=== PATIENT | female | born 1965 | race Caucasian/White ===

== ENCOUNTER 2023-02-04 09:06 | Emergency (ER) | payer OTHER, SELFPAY ==
[2023-02-04 09:20] VITALS: BP 147/74; PULSE 80; RESP 16; TEMP 36.4; O2SAT 99
--- NOTE | 2023-02-04 09:37 | ED.EAR ---
HPI - Ear Problem General Chief complaint: Ear Stated complaint: lt ear clogged Time Seen by Provider: 02/04/23 09:39 Source: patient, RN notes reviewed and old records reviewed Mode of arrival: ambulatory Limitations: no limitations History of Present Illness HPI Narrative: 57 year old female who presents to [facility] care with complaints of left ear clogged with decreased hearing since yesterday. Patient reports history of ear wax accumulation in the past with similar symptoms. Patient would like to have ear irrigated to remove wax. Patient denies any complaints of acute pain to her ears or fevers. MD Complaint: decreased hearing (left ear) and other (left ear feels clogged) Location: left ear Discharge from ear: Reports no Related Data Home Medications Medication Instructions Recorded Confirmed No Home Medications 02/04/23 02/04/23 Allergies Allergy/AdvReac Type Severity Reaction Status Date / Time acetaminophen [From Vicodin] Allergy Hives Verified 02/04/23 09:31 hydrocodone [From Vicodin] Allergy Hives Verified 02/04/23 09:31 Sulfa (Sulfonamide Allergy Hives Verified 02/04/23 09:31 Antibiotics) Review of Systems Review of Systems: CONSTITUTIONAL: Denies malaise, chills, sweats, or fever. EYES: Denies visual changes, redness, or discharge. ENT: Reports no rhinorrhea, congestion, sinus pain, left otalgia with decreased hearing, no sore throat. CARDIOVASCULAR: Denies chest pain, palpitations, or edema. RESPIRATORY: Reports no cough.? Denies dyspnea. GASTROINTESTINAL: Denies abdominal pain, nausea, vomiting, diarrhea SKIN: Denies rash or itching. MUSCULOSKELETAL: Denies myalgia. NEUROLOGIC: Denies headache. All systems reviewed & are unremarkable except as noted in HPI and below PMFSH Social History Social History (Updated 02/05/23 @ 15:30 by Faith Aguero NP) Smoking status: Never smoker Alcohol intake: unknown Substance use type: does not use Gender identity (if verbalized by the patient): Female Comments At time of signature, agree with nursing past medical, surgical, social and family history. There is no relevant family history pertinent to the presenting complaint Exam Narrative: GENERAL: Well-appearing, well-nourished, and in no acute distress. HEAD: Normocephalic EYES: PERRLA, conjunctivae clear ENT: Nares clear, turbinates edematous and erythematous, clear discharge. Mucous membranes moist. left ear wax impaction noted, after cleansing bilateral TM pearly loyd with dull light reflex bilaterally; no tragal tenderness. Oropharynx erythematous without lesions. Tonsils not enlarged and without exudate, no drooling, no hoarseness, no trismus, uvula midline. NECK: Supple. No lymphadenopathy CHEST: Clear to auscultation, breath sounds equal. No wheezing, rhonchi, rales, or stridor. No respiratory distress, speaks in full sentences.SAO2 99% on room air HEART: Regular rate and rhythm. No murmur heard. SKIN: Warm, dry, no rash. NEURO: Alert and oriented x3. PSYCH: Normal mood and affect Course Course Emergency Course: Patient is aware of diagnosis, understands and agrees to treatment plan.? Anticipatory guidance given.? Patient agrees to follow-up as directed and is aware of reasons to seek care at the emergency department. Portions of this record may have been created with voice recognition software Level of Care: Express Care Visit Vital Signs Vital signs: Vital Signs Temperature 36.4 C L 02/04/23 09:20 Pulse Rate 80 02/04/23 09:20 Respiratory Rate 16 02/04/23 09:20 Blood Pressure 147/74 H 02/04/23 09:20 Pulse Oximetry 99 02/04/23 09:20 Temperature 36.4 C L 02/04/23 09:20 Pulse Rate 80 02/04/23 09:20 Respiratory Rate 16 02/04/23 09:20 Blood Pressure 147/74 H 02/04/23 09:20 Pulse Oximetry 99 02/04/23 09:20 Reviewed Procedures Ear Wax Removal Left Ear: Ear Wax Removal Date: 02/04/23
== END 2023-02-04 09:58 | disposition home or self-care (01) ==
PROVIDERS: Emergency Provider Registered Nurse; PCP Family Medicine
DX: H61.22 Impacted cerumen, left ear (principal)
CPT/HCPCS: 69209; 99212; G0463

== ENCOUNTER 2023-10-05 08:08 | Outpatient (CLI) | payer OTHER, SELFPAY ==
--- NOTE | ~2023-10-05 | MM_ITS ---
EXAMINATION: MM screening [place] BI w nancy HISTORY: Screening mammogram TECHNIQUE: Craniocaudal and mediolateral oblique 3-D tomosynthesis images were obtained and synthetic 2-D images were generated. CAD analysis was submitted and interpreted. COMPARISON: No prior mammogram is available for comparison at this institution. BREAST PARENCHYMAL COMPOSITION: The breasts are heterogeneously dense, which may obscure small masses . FINDINGS: There is no evidence of suspicious mass, calcification, or architectural distortion to sugg est malignancy in either breast. IMPRESSION: 1. No mammographic evidence of malignancy. 2. Recommend routine screening mammography in one year. BI-RADS Category 1: Negative Reviewed, dictated and finalized at location A. REGISTER OPERATOR
== END 2023-10-05 08:09 | disposition home or self-care (01) ==
PROVIDERS: PCP Family Medicine; Visit Provider Family Medicine
DX: Z12.31 Encounter for screening mammogram for malignant neoplasm of breast (principal)
CPT/HCPCS: 77063; 77067

== ENCOUNTER 2023-12-14 12:08 | Outpatient (CLI) | payer OTHER, SELFPAY ==
--- NOTE | ~2023-12-14 | XR_ITS ---
EXAMINATION: XR lumbar spine min 4V DATE: 12/14/2023 12:41 INDICATION: Low back pain TECHNIQUE: Anteroposterior, lateral, and bilateral oblique views of the lumbar spine, and cone-down l ateral view of the lumbosacral junction were obtained. COMPARISON: None. FINDINGS: There are 4 mm of anterolisthesis of L4 on L5. There is mild loss of intervertebral disc sp luz height at L4-5 and L5-S1. The vertebral body heights are maintained. There is no fracture. There is moderate facet joint osteoarthritis of the lower lumbar spine. IMPRESSION: 1. Mild lumbar spondylosis without acute findings. Reviewed, dictated and finalized at location B. BASED PAINT TECHNICIAN
--- NOTE | ~2023-12-14 | XR_ITS ---
AP view of the pelvis and AP and lateral views of the bilateral hips Clinical history: Pain Findings: No acute fracture or dislocation is seen. Osseous alignment is anatomic. Bilateral hip and SI joint spaces are preserved. Soft tissues are unremarkable. Impression: No significant abnormality is seen. Reviewed, dictated and finalized at [facility]. LANCE WEB DESIGNER Impression: No significant abnormality is seen.
--- NOTE | ~2023-12-14 | XR_ITS ---
EXAMINATION:XR cervical spine 4-5V DATE: 12/14/2023 12:41 INDICATION: Neck pain TECHNIQUE: AP, lateral, lateral swimmers and odontoid views of the cervical spine are provided. COMPARISON: None FINDINGS: There are 2 mm of anterolisthesis of C3 on C4 and 2 mm of retrolisthesis of C4 on C5 and C5 on C6 The odontoid process is intact. No fracture is identified. The vertebral body heights are main tained. There is severe loss of intervertebral disc space height at C4-5, C5-6, and C6-7. There is mu ltilevel severe uncovertebral joint osteoarthritis and mild to moderate facet joint osteoarthritis. P revertebral soft tissues are normal. IMPRESSION: 1. Severe cervical spondylosis without acute findings. Reviewed, dictated and finalized at location B. ING PLANNING INTERNS[employer]IP
--- NOTE | ~2023-12-14 | XR_ITS ---
Left Shoulder Technique: AP and scapular Y views were obtained. Clinical History: Pain Findings: No fracture or dislocation is seen. Osseous alignment is anatomic. The glenohumeral and acr omioclavicular joint spaces are preserved. Soft tissues are unremarkable. Impression: Unremarkable left shoulder radiographs. Reviewed, dictated and finalized at [facility]. L INSTALLER Impression: Unremarkable left shoulder radiographs.
== END 2023-12-14 12:09 ==
PROVIDERS: PCP Family Medicine; Visit Provider Family Medicine
DX: M43.06 Spondylolysis, lumbar region (principal); M43.02 Spondylolysis, cervical region; M25.512 Pain in left shoulder
CPT/HCPCS: 72050; 72110; 73030; 73521

== ENCOUNTER 2023-12-14 12:51 | Outpatient (CLI) | payer OTHER, SELFPAY ==
--- NOTE | 2023-12-17 07:16 | WPDPFTINT ---
PFT Procedure Performed PFT Procedure Performed Plethysmography (Lung Vol) Diffusing Cap (DLCO) Flow Vol Loop Spirometry w/o Bronchodil PFT Interpretation This is a pulmonary function test with spirometry, plethysmography and diffusing capacity. The test was performed and results interpreted in accordance with the 2019 and 2005 ATS/ERS Task Force guidelines respectively using the Global Lung Function Initiative-2012 reference equations. Patient demonstrated good effort and cooperation. Reproducibility criteria were met. The quality of the spirometry maneuver was Grade A. Findings: Spirometry: There is decreased maximal expiratory airflow at all lung volumes. The contour the inspiratory flow tracing is normal. The FVC is 2.97 L, 96% predicted. The FEV1 is 1.94 L, 79% predicted. The FEV1: FVC ratio 65%. Plethysmography: The total lung capacity is 5.13 L, 103% predicted. The functional residual capacity is 2.91 L, 104% predicted. The residual volume is 2.16 L, 110% predicted. Diffusing capacity: The diffusing capacity unadjusted for hemoglobin and carboxyhemoglobin is 17.9, 83% predicted. The diffusing capacity adjusted for alveolar volume is 4.28, 96% predicted. Impression: There is a mild obstructive abnormality with a normal FEV1. The lung volumes are normal. The diffusing capacity is normal. There are no prior studies for comparison
== END 2023-12-14 12:52 | disposition home or self-care (01) ==
PROVIDERS: PCP Family Medicine; Visit Provider Family Medicine
DX: J44.9 Chronic obstructive pulmonary disease, unspecified (principal)
CPT/HCPCS: 94375; 94726; 94729

== ENCOUNTER 2024-02-01 14:47 | Outpatient (CLI) | payer OTHER, SELFPAY ==
--- NOTE | ~2024-02-01 | MR_ITS ---
EXAMINATION: MR knee LT wo con DATE: 02/01/2024 15:18 INDICATION: Unspecified left lower leg injury with left knee pain TECHNIQUE: Magnetic resonance imaging (MRI) of the left knee was performed without intravenous contra st. Sequences included coronal PD-weighted FSE, coronal PD-weighted FS FSE, sagittal T2-weighted FSE , sagittal PD-weighted FS FSE and axial PD weighted fat saturated FSE. COMPARISON: None. FINDINGS: Medial compartment: Complex tear of the body and posterior horn of the medial meniscus. Mild partial-thickness cartilage loss with smooth chondral surface along the anterior to central weightbearing medial femoral condyle. Lateral compartment: Lateral meniscus is normal. Articular cartilage is normal. Patellofemoral compartment: Small region of partial-thickness chondral ulceration at the inferior aspect of the medial trochlea. Patellofemoral cartilage is otherwise normal. Ligaments and tendons: Complete tear of the anterior cruciate ligament with mild anterior subluxation of the tibia with resp ect to the distal femur. There is at least partial tear of the posterior cruciate ligament with thick ening and linear increased intrasubstance signal at the distal vertical portion of the posterior cruc iate ligament. Likely complete tear of the proximal medial collateral ligament. The fibular collatera l ligament complex is normal. The extensor mechanism is normal. The visualized medial and lateral ham string tendons as well as the iliotibial band are normal. Fluid: Moderate-sized knee joint effusion at the suprapatellar pouch. No loose osteochondral bodies identifi ed. Moderate-sized Carrillo's cyst extending 5.4 cm craniocaudally and measuring 1.5 x 0.7 cm maximal tr ansaxial dimensions. Osseous/other: Marrow edema surrounding a small low signal intensity impaction fracture line underlying the posterio r rim of the lateral tibial plateau. There is a bone contusion without definitive fracture underlying the lateral sulcus of the lateral femoral condyle. Additional bone contusions without evident fractu re at the anteromedial rim of the medial tibial plateau and along the anteromedial margin of the weig htbearing medial femoral condyle. No pathologic marrow replacing process. IMPRESSION: 1. Complete tears of the anterior cruciate ligament and proximal medial collateral ligament and at le ast partial tear of the vertical component of the posterior cruciate ligament. 2. Complex tear of the body and posterior horn of the medial meniscus. 3. Mild medial and patellofemoral osteoarthritis. 4. Moderate-sized knee joint effusion and moderate-sized Carrillo's cyst. Reviewed, dictated and finalized at location A. IMPRESSION: 1. Complete tears of the anterior cruciate ligament and proximal medial collate ral ligament and at least partial tear of the vertical component of the posteri or cruciate ligament. 2. Complex tear of the body and posterior horn of the medial meniscus. 3. Mild medial and patellofemoral osteoarthritis. 4. Moderate-sized knee joint effusion and moderate-sized Carrillo's cyst.
== END 2024-02-01 14:48 ==
PROVIDERS: PCP Family Medicine; Visit Provider Orthopaedic Surgery
DX: S83.512A Sprain of anterior cruciate ligament of left knee, initial encounter (principal); S83.412A Sprain of medial collateral ligament of left knee, initial encounter; S83.232A Complex tear of medial meniscus, current injury, left knee, initial encounter; M17.12 Unilateral primary osteoarthritis, left knee; M25.462 Effusion, left knee; M71.22 Synovial cyst of popliteal space [Baker], left knee; X58.XXXA Exposure to other specified factors, initial encounter
CPT/HCPCS: 73721

== ENCOUNTER 2024-02-16 07:59 | Outpatient (CLI) | payer OTHER, SELFPAY ==
--- NOTE | 2024-02-16 08:09 | ECG_ITS ---
SEE SCANNED COPY FOR CONFIRMED REPORT MTDD
== END 2024-02-16 08:00 | disposition home or self-care (01) ==
LOC: ANHCARD 08:01
PROVIDERS: PCP Family Medicine; Visit Provider Anesthesiology
DX: F17.210 Nicotine dependence, cigarettes, uncomplicated (principal); Z01.818 Encounter for other preprocedural examination
CPT/HCPCS: 93005

== ENCOUNTER 2024-02-20 01:29 | Day surgery (SDC) | payer OTHER, SELFPAY ==
[2024-02-14 13:10] VITALS: BMI 26.4
--- NOTE | 2024-02-14 13:21 | PC.NURSE ---
Report to the Outpatient Waiting Room, entrance under the green pavilion located off [facility], at time _0830_ on date _[id number]_. Planned Procedure Time: _1030_. Time changes happen often and if your time is changed the preop area will call you the afternoon before. - You and your visitor will be asked to self-screen and do not enter if you have any COVID symptoms. - A mask is optional within the hospital at this time. Patients may have clear liquids (water, carbonated beverages, clear teas, apple juice) until 3 hours prior to surgery with a maximum of 20 ounces. - No food from midnight until time of surgery Take the following medications with a SIP of water the morning of surgery: __Albuterol inhaler if needed. DO NOT STOP ANY OF YOUR OTHER PRESCRIPTION MEDICATIONS PRIOR TO SURGERY ?EXCEPT THE FOLLOWING Medications to discontinue per physician ___Has not used ibuprofen in 4 months and will not start again till after surgery. Date to take last dose Please no make-up, nail gabonese, hairspray, perfume, deodorant, or body powder the day of surgery. No jewelry (including any body piercings) or valuables the day of surgery, leave them at home. Please take a shower or bath the night before, or the morning of, surgery with an antibacterial soap. Wear comfortable, loose fitting clothing. - Jewelry must be removed prior to entering the operating room. Rings and piercings that are not removed may be cut off. - The hospital will not accept responsibility for valuables. - Please leave all valuables, including medications, at home the day of surgery. If you are going home after surgery, a licensed clamp truck driver must drive you home. - NO public transportation without another adult if you receive anesthesia. - We recommend that an adult stay with you for 24 hours following discharge. - We also recommend that you do not drive, make important decision, drink alcoholic beverages, or take any drugs that were not prescribed by your health care provider for at least 24 hours after your discharge time. Follow any additional instructions given to you from your surgeon. If you or anyone in your household have experienced Covid symptoms in the past week, please notify your surgeon or the nurse liaison at the phone number below for possible testing. Telephone instructions given to __Niurka__and asked if any additional questions and then verbalized understanding. Patient advised to call surgeon office or pre surgery nurse liaison [phone] if any additional questions.
[2024-02-20] VITALS (9 sets, daily range): BP systolic 158–185; BP diastolic 65–92; PULSE 57–90; RESP 10–18; TEMP 36.4–36.7; O2SAT 93–100; BMI 26.3
--- NOTE | 2024-02-20 07:21 | WPDHPUPDATE1 ---
History and Physical Update Update Date/Time: 02/20/24 07:21 History and Physical has been reviewed, including an updated exam of the patient. There are NO changes in the patient's condition. Risks, benefits, and alternatives have been discussed and questions answered. Patient agrees to proceed with procedure.
--- NOTE | 2024-02-20 09:35 | P.PNAN_ITS ---
Anes - Initial Pre Proc Eval Procedure: Operation Date: 02/20/24 10:30 Proposed Procedures p Left Knee Arthroscopy, Proceed As Indicated - Beau Chin MD Date/Time: 02/20/24 09:35 Surgeon: Beau Chin MD Pre Op Diagnosis: left medial meniscal tear Patient Data Age: 58 Gender: F Height: 1.63 m Weight: 70 kg Allergies Allergy/AdvReac Type Severity Reaction Status Date / Time hydrocodone [From Vicodin] Allergy Hives Verified 02/14/24 13:08 Sulfa (Sulfonamide Allergy Hives Verified 02/14/24 13:08 Antibiotics) Home Medications Medication Instructions Recorded Confirmed Type albuterol sulfate 90 mcg/actuation 1 inh inhalation Q4H PRN shortness 12/03/23 02/14/24 Rx aerosol inhaler of breath or wheezing #8.5 grams cyclosporine 0.05 % eye drops in a 1 drp EACH EYE Q12H 12/03/23 02/14/24 History dropperette (Restasis) fluticasone 250 mcg-salmeterol 50 1 inh inhalation BID #60 ea 12/17/23 02/14/24 Rx mcg/dose blistr powdr for inhalation (Advair Diskus) ibuprofen 800 mg tablet 800 mg PO TID PRN pain #60 tabs 01/07/24 02/14/24 Rx chlorhexidine gluconate 4 % 1 applic topical ONCE #237 mL 02/13/24 02/14/24 Rx topical liquid (Hibiclens) Patient hx anesthesia problems: none Family hx anesthesia problems: none Results Review: All pre-operative results and documents have been reviewed as part of the pre- operative evaluation. [facility] Past Medical History Medical History Cysts Dental implant pain Social History Social History Smoking packs per day: 1 Smoking cigarettes per day: 20.0 Years smoked: 45 Smoking pack-years: 45.00 Smoking status: Current every day smoker Tobacco type: cigarettes Alcohol intake: current Drinks per week: 4 Substance use: current Substance use type: marijuana Other substance usage details: ever other day Lack of Transportation: No Lack of Food: Never True Current Housing: I Have Housing Concerned About Future Housing: No Difficulty Paying Gas/Electric Bills: No Difficulty Paying for Meds: No Currently Unemployed: No Education: Bachelor's Degree Difficulty w/ Childcare or Family Care: No Living arrangements: with family Gender identity (if verbalized by the patient): Female Spiritual care concerns: No Agree to blood products: Yes Sherice - Luciano Final PreProcedure Day of Procedure 02/20/24 09:35 Patient weight: normal Heart: regular rate and rhythm Lungs: clear to auscultation Airway: Mallampati scale class II and special considerations (Several dental implants, none loose. ) Neurological: alert and oriented Last oral intake: >/= 8 hours ASA classification: II Emergent: no Anesthetic plan: proceed Anesthesia type and monitoring: general LMA and standard monitoring Results Review: All pre-operative results and documents have been reviewed as part of the pre- operative evaluation. Pt smokes 1.5 ppd for many years, PFT w mild obstructive pattern. Informed Consent: The patient's anesthetic plan and its attendant risks and benefits were discussed with the patient/family/POA. Questions were solicited and answers provided to the satisfaction of the patient/family/POA.
[2024-02-20] MEDS: ACETAMINOPHEN 500 MG TABLET 1000 MG PO (10:04)
[2024-02-20] MEDS: CELECOXIB 200 MG CAPSULE PO (10:04)
[2024-02-20] MEDS: LACTATED RINGERS 1,000 ML 30 ML IV CONT ×2 (10:04→11:27)
[2024-02-20] MEDS: BUPivacaine HCL 0.5% 10 ML AMP 30 ML INFILTRATE (10:29)
--- NOTE | 2024-02-20 11:31 | P.OP_ITS ---
Procedure Note - Detailed Date of Procedure 02/20/24 Pre-op Diagnosis left medial meniscal tear, acl tear Post-op Diagnosis Other (LEFT MEDIAL AND LATERAL MENISCUS TEAR) Procedure Performed LEFT KNEE SCOPE Surgeon Beau Chin MD Anesthesia General Description of Procedure PATIENT WAS TAKEN TO THE OR. THE LEFT LEG WAS PREPPED AND DRAPED STERILE. TROCARS WERE PLACED IN THE USUAL FASHION. CAMERA WAS INTRODUCED. THERE WAS CHONDROMALACIA TO THE PATELLA FEMORAL JOINT. THERE WAS A LOT OF SYNOVITIS IN ALL COMPARTMENTS. THE MEDIAL COMPARTMENT SHOWED MINIMAL CHONDROMALACIA TO THE MEDIAL FEMORAL CONDYLE. A SHAVER WAS USED TO PREFORM A CHONDROPLASTY. THERE WAS A LARGE COMPLEX MEDIAL MENISCUS TEAR. THE TEAR WAS RESECTED WITH A BITER AND A SHAVER DOWN TO A SMOOTH BASE. THERE WAS A NEAR COMPLETE TEAR OF THE ACL. DIRECT VISUAL ANTERIOR DRAWER TEST SHOWED SIGNIFICANT LAXITY. THE LATERAL MENISCUS WAS TORN AT THE MID SECTION. THE TEAR WAS RESECTED. THE LATERAL COMPARTMENT HAD MINIMAL CHONDROMALACIA. CHONDROPLASTY WAS PREFORMED. A SYNOVECTOMY WAS PREFORMED WELL. THE PATELLO FEMORAL JOINT UNDERWENT CH ONDROPLASTY. THERE WAS GRADE 2 CHONDROMALACIA IN MOST OF THE TROCHLEA AND PART OF THE PATELLA. SYNOVECTOMY WAS PREFORMED IN THE SUPERIOR MEDIAL COMPARTMENT. THE WOUNDS WERE APPROXIMATED WITH 4.0 NYLON. STERILE DRESSING WAS APPLIED. PATIENT WAS EXTUBATED. Estimated Blood Loss 5 Complications No immediate complications Condition Stable Disposition PACU
[2024-02-20] MEDS: traMADol HCL (*CRX) 50 MG TABLET PO (12:56)
== END 2024-02-20 13:45 | disposition home or self-care (01) ==
PROVIDERS: PCP Family Medicine; Visit Provider Orthopaedic Surgery
PROC: (CPT 29870; principal; 2024-02-20 10:30)
DX: S83.232A Complex tear of medial meniscus, current injury, left knee, initial encounter (principal); S83.282A Other tear of lateral meniscus, current injury, left knee, initial encounter; S83.512A Sprain of anterior cruciate ligament of left knee, initial encounter; M65.862 Other synovitis and tenosynovitis, left lower leg; M22.42 Chondromalacia patellae, left knee; W19.XXXA Unspecified fall, initial encounter; F17.210 Nicotine dependence, cigarettes, uncomplicated; F12.90 Cannabis use, unspecified, uncomplicated; Z79.51 Long term (current) use of inhaled steroids
CPT/HCPCS: 29880; 93005; A9270; J1100; J1596; J2250; J2405; J2704; J3010; J7120

== ENCOUNTER 2024-03-24 15:47 | Outpatient (RCR) | payer OTHER, SELFPAY ==
--- NOTE | 2024-03-24 17:52 | PTOPEVAL1 ---
Assessment and note entered by Sara Nesbitt PT Evaluation Information Assessment Status Evaluation Diagnosis meniscus derangement; sprain of ACL L knee Onset sudden Subjective Information Pt reports a h/o slipping and falling Easter Sunday night after washing dishes, she slipped on wet tile and fell, L knee had a lot of pain and felt unstable which prompted her to see MD. States she had surgery 02/20/2024; after surgery she continue to feel mild pain and stiffness, some swelling. Reports experiencing sharp pains to medial aspect of operated knee when she is sitting for a period of time and watching TV. States she just now recently able to get up/down steps without holding on to the railing. Pt reports she has 14 steps at home with 1 HR which she goes up/ down 3-5x daily. Reported Pain Level Pain Score 4: Self Report Assessment PT Clinical Summary Pt is a 58 yo female who presents to therapy with increased pain to L knee, diagnosed with left medial and lateral meniscal tear, ACL tear s/p L knee scope performed by Dr. Elsy MD. Pt demos limited ROM, weakness, swelling, antalgic gait pattern, stiffness, postural compensation and balance deficits greatly influenced by pain which impacts her ability to perform functional activities, IADLs safely. She will benefit from continued skilled PT to address deficits and improve safety and quality of life. Plan of Care Interventions Electrical Stimulation,Gait Training,Hot Pack/Cold Pack,Manual Therapy,Neuro Re-education,Patient/ Caregiver Education,Therapeutic Activities, Therapeutic Exercise PT Services Indicated Yes Treatment Frequency and 2x/wk for 12 visits Duration These treatments will address the objective and functional deficits as defined above. The patient will be advanced safely and appropriately in order for the patient to progress towards his/her prior level of function. Additional exercises will be introduced and as well as a comprehensive home exercise program upon discharge, if needed, ?to ensure carryover of functional gains achieved in the clinic. This treatment plan has been reviewed and agreement upon by the patient.
--- NOTE | 2024-05-29 11:00 | PCPTNOTE ---
Mrs. Azul attended her initial evaluation on 03/24/24. She has failed to return to the clinic since this date and will be discharged from our care. Refer to the initial evaluation for patient discharge status. Thank you for the referral of this patient. Ghassan Au, MPT
== END 2024-06-10 11:38 | disposition home or self-care (01) ==
LOC: ANHPT 15:47
PROVIDERS: PCP Family Medicine; Visit Provider Orthopaedic Surgery
DX: M23.329 Other meniscus derangements, posterior horn of medial meniscus, unspecified knee (principal); S89.92XD Unspecified injury of left lower leg, subsequent encounter; S83.512D Sprain of anterior cruciate ligament of left knee, subsequent encounter
CPT/HCPCS: 97110; 97116; 97161; 97530

== ENCOUNTER 2024-04-03 07:56 | Outpatient (CLI) | payer OTHER, SELFPAY ==
--- NOTE | ~2024-04-03 | DEXA_ITS ---
Bone Density Report Name: CAM VALLADARES Age: 58 Sex: Female Ethnicity: White Date of : 1965 Indication: postmenopausal; screening for osteoporosis; asthma or emphysema; Referring Provider: CAM HART Study: Bone densitometry was performed. Exam Date: April 03, 2024 Accession number: [id number] Bone Density: Region BMD T-score Z-score Classification AP Spine(L1-L4) 0.824 -2.0 -0.6 Osteopenia Femoral Neck (Left) 0.606 -2.2 -0.9 Osteopenia Total Hip (Left) 0.763 -1.5 -0.5 Osteopenia Femoral Neck (Right) 0.602 -2.2 -0.9 Osteopenia Total Hip (Right) 0.794 -1.2 -0.2 Osteopenia Total Hip Mean 0.778 -1.4 -0.4 Osteopenia World Health Organization criteria for BMD impression classify patients as: Normal (T-score at or above -1.0), Osteopenia (T-score between -1.0 and -2.5), or Osteoporosis (T-score at or below -2.5). Clinical Information Provided by Patient: Smokes Has the following medical conditions: Asthma or Emphysema Patient maximum height was 64.5 No regular weight bearing exercise Drinks caffeinated beverages Onset of menses at age 10 Number of children 0 Missed period for more than 6 months in a row Impression: The patient has low bone mass, based on the Left Femoral Neck T-score. The patient has risk factors, including: smoking. Discussion: BONE DENSITY IS LOW AT ONE OR MORE SKELETAL SITES. This patient's lowest T-score is low at one or more skeletal sites. It meets the World Health Organization's (WHO) criteria for ?low bone mass? (T-score between -1.0 and -2.5). The patient's 10-year risk of fracture as calculated by FRAX is less than the threshold where pharmacological therapy is recommended by the National Osteoporosis Foundation (NOF). However, all treatment decisions require clinical judgment and consideration of individual patient factors, including patient preferences, comorbidities, previous drug use, risk factors not captured in the FRAX model (e.g., frailty, falls, vitamin D deficiency, increased bone turnover, interval significant decline in bone density) and possible under or overestimation of fracture risk by FRAX. The patient should follow a healthful lifestyle (good nutrition with adequate calcium and vitamin D, and appropriate weight-bearing exercise). Follow-Up: Consider repeating this study in 2 to 3 years to reassess this patient's status, or sooner if there is some new clinical indication. Reported by: ALFONZO on 04/03/2024 8:26:00 AM. Reviewed, dictated and finalized at location A.
== END 2024-04-03 07:57 | disposition home or self-care (01) ==
PROVIDERS: PCP Family Medicine; Visit Provider Family Medicine
DX: M85.89 Other specified disorders of bone density and structure, multiple sites (principal); Z78.0 Asymptomatic menopausal state; Z13.820 Encounter for screening for osteoporosis
CPT/HCPCS: 77080

== ENCOUNTER 2025-07-24 14:16 | Outpatient (CLI) | payer OTHER, SELFPAY ==
--- NOTE | ~2025-07-24 | MM_ITS ---
EXAMINATION: MM screening [place] BI w nancy HISTORY: Screening TECHNIQUE: Craniocaudal and mediolateral oblique 3-D tomosynthesis images were obtained and synthetic 2-D images were generated. CAD analysis was submitted and interpreted. COMPARISON: 10/05/2023 BREAST PARENCHYMAL COMPOSITION: The breasts are heterogeneously dense, which may obscure small masses. FINDINGS: There is no evidence of suspicious mass, calcification, or architectural distortion to suggest malignancy. There has been no suspicious interval change. IMPRESSION: 1. No mammographic evidence of malignancy. Recommend routine screening mammography in one year. BI-RADS Category 2: Benign finding(s) Reviewed, dictated and finalized at location Q. IMPRESSION: 1. No mammographic evidence of malignancy. Recommend routine screening mammogra phy in one year. BI-RADS Category 2: Benign finding(s)
--- OUTSIDE RECORDS SUMMARY | 2025-07-24 14:18 | XMS_ITS | Clinical Summary ---
Author Organization [facility] Address [address] [place] [address] [place] [address] Care Team Providers Care Legal Support Specialist Name Role Phone Anish Taveras MD Unavailable Maria Guadalupe Becerril MD Unavailable Pcp, [facility] Yuliana Lemuel [facility] Primary Care Provider Un available Source Comments [facility],non-owned Affiliates and Associated Physician Practices is amultiple site organization consisting of ambulatory clinics and hospital sitesin [place], [place], [place] and [place]. This disclosure is being madepursuant to the Care Everywhere program and may not contain all information available regarding this patient. Last updated 18.[facility] Allergies Active Allergy Reactions Criticality Noted Date Comments Hydrocodone-Acetaminophen Urticaria High 12/10/2014 Sulfa Drugs Itching 09/18/2014 Sulfur Urticaria High 12/10/2014 Hydrocodone-Acetaminophen Itching 09/18/2014 Medications * Be aware that medications may not be up to date on this document. Alwaysverify current medications with the patient. amLODIPine (NORVASC) 5 MG tabletIndications:H ypertension, unspecified type Take 1 (one) tablet by mouth once daily 90 tablet 3 1 Active fluticasone-salmete rol (ADVAIR/WIXELA) 100-50 MCG/DOSE inhalerIndications: Stage 1 mild COPD by GOLD classification (HCC) Inhale 1 (one) puff by mouth 2 times daily 60 Each 1 Active desvenlafaxine succinate ER 24hr (PRISTIQ) 50 MG tabletIndications:E pisode of recurrent major depressive disorder, unspecified depression episode severity Take 1 (one) tablet by mouth once daily 30 tablet 2 1 Active OLANZapine (ZYPREXA) 5 MG tabletIndications:E pisode of recurrent major depressive disorder, unspecified depression episode severity Take 1 (one) tablet by mouth once daily 30 tablet 2 1 Active Active Problems Problem Noted Date Diagnosed Date HTN (hypertension) 06/28/2021 Visual changes 06/26/2021 Stage 1 mild COPD by GOLD classification 020 Episode of recurrent major depressive disorder 0 11/14/2019 Tobacco use disorder 11/14/2019 Diffuse cystic mastopathy 02/23/2016 Alcohol-related disorder 11/10/2014 Resolved Problems Problem Noted Date Diagnosed Date Resolved Date Simple chronic bronchitis 11/14/2019 Depressive disorder, not elsewhere classified 11/10/19 15 11/14/2019 Anxiety state 11/10/2014 06/26/2021 Overview (07/08/2015): Immunizations Immunization Administration Dates Next Due INFLUENZA VACCINE, TRIV. (AF LURIA, FLUZONE TRIVALENT; 6MO+) (IIV3) 07/16/2017 Covid Moderna primary monova lent 12+ yr 0.5mL 09/28/2021,02/09/2021,01/12/2021 INFLUENZA VACCINE, QUADR. (F LUZONE; FLULAVAL; FLUARIX; AFLURIA QUADRIVALENT; 6MO+), 0.5 ML (IIV4) 07/26/2021,07/26/2021 TDAP (7yrs+) 06/15/2017 Zoster Hzv Vacc Recombinant Inj Im 11/01/2021,,07/26/2021 Family History Relation Name Status Comments Father Mother Alive Social History Tobacco Use Types Packs/Day Years Used Date Smoking Tobacco: Every Day Cigarettes 1.5 40 Smokeless Tobacco: Never Tobacco Cessation:Ready to Q uit: Yes; Counseling Given: Yes Comments:started smoking 9 years old Alcohol Use Standard Drinks/Week Comments Yes 0 (1 standard drink = 0.6 oz pur e alcohol) 10 drinks per week AUDIT-C Answer Date Recorded Frequency of Alcohol Consumption 2-4 times a mon th 11/14/2019 Average Number of Drinks 3 or 4 020 Frequency of Binge Drinking Not on file 04/2020 PHQ-2 Answer Date Recorded PHQ2 TOTAL SCORE 2 04/25/2021 Comments No Sex and Gender Information Value Date Recorded Sex Assigned at Not on file Legal Sex Female 11:41 AM CDT Gender Identity Not on file Sexual Orientation Not on file Last Filed Vital Signs Vital Sign Reading Time Taken Comments Blood Pressure 130/70 09/14/2021 2:19 PM BELLPERSON Pulse 86 09/14/2021 2:19 PM BELLPERSON Temperature 37.2 C (99 F) 04/25/2021 4:19 PM CDT Respiratory Rate 17 04/25/2021 4:19 PM CDT Oxygen Saturation 97% 09/14/2021 2:19 PM BELLPERSON Inhaled Oxygen Concentration - - Weight 64.2 kg (141 lb 9.6 oz) 09/14/2021 2:19 P M BELLPERSON Height 160 cm (5' 3) 09/14/2021 2:19 PM BELLPERSON Body Mass Index 25.08 09/14/2021 2:19 PM BELLPERSON Plan of Treatment Health Maintenance Due Date Last Done Comments COLOGUARD (AGES 45-75) - COLON CA SCREENING 1963 COLON MONITORING 1963 COLONOSCOPY - COLON CA SCREENING 1963 CT COLONOGRAPHY - COLON CA SCREENING 1963 Colorectal Cancer Screening 1963 FIT - COLON CA SCREENING 1963 FLEX SIG - COLON CA SCREENING 1963 MAMMOGRAM 1963 HIV SCREENING 1978 HEPATITIS C SCREENING 10/16/1981 PNEUMOCOCCAL VACCINE 50+ (1 of 2 - PCV) 1982 LUNG CANCER SCREENING 2013 SCREENING FOR DIABETES 06/28/2024 06/28/2021, 2020 DEPRESSION SCREENING 10/08/2024 COVID-19 VACCINE ( season) 2025 01/26/2022, 09/28/2021, 02/09/2021, Additional history exists INFLUENZA VACCINE (#1) 2025 , 07/26/2021, 07/16/2017 LIPID TESTING 06/28/2026 06/28/2021 DTAP/TDAP/TD VACCINES (2 - Td or Tdap) 06/15/2027 06/15/2017 Respiratory Syncytial Virus (RSV) Vaccine Pt: or over 60 yrs (1 - 1-dose 75+ series) 2038 ZOSTER VACCINE Completed 11/01/2021, 07/08, 07/26/2021 HEPATITIS B VACCINE Aged Out No longe r eligible based on patient's age to complete this topic HIB VACCINE Aged Out No longer eligi ble based on patient's age to complete this topic HPV VACCINE Aged Out No longer eligi ble based on patient's age to complete this topic MENINGOCOCCAL (Group B) VACCINE SHARED DECISION-MAKING Aged Out No longer eligible based on patient's age to complete this topic MENINGOCOCCAL GROUPS A/C/Y/W VACCINE Aged Out No longer eligible based on patient's age to complete this topic Goals Goal Patient Goal Type Associated Problems Recent Progress Patient-Stated? Author [facility] Lifestyle:Nestor salcedo PCP visit Lifestyle No Agata Arrington MA Procedures Procedure Name Priority Date/Time Associated Diagnosis Comments COMPREHENSIVE METABOLIC PANEL Routine 06/28/2021 10:44 AM CDT Hypertension, unspecified type LIPID PROFILE Routine 06/28/2021 10:44 AM CDT Hypertension, unspecified type from Last 3 Months or Most Recently Relevant to Health Maintenance Results * COMPREHENSIVE METABOLIC PANEL (06/28/2021 10:44 AM CDT) Glucose 97 70 - 105 mg/dL [facility] ACCOUNT BILL BUN 13 9.8 - 20.1 mg/dL [facility] ACCOUNT BILL Creatinine 0.72 0.57 - 1.11 mg/dL [facility] ACCOUNT BILL eGFR by MDRD >60 >60 mL/min/1.7 3m2 [facility] ACCOUNT BILL eGFR by MDRD >60 >60 mL/min/1.7 3m2 [facility] ACCOUNT BILL Sodium 139 136 - 145 mmol/L [facility] ACCOUNT BILL Potassium 4.3 3.5 - 5.1 mmol/L [facility] ACCOUNT BILL Chloride 105 98 - 107 mmol/L [facility] ACCOUNT BILL CO2 23 23 - 31 mmol/L [facility] ACCOUNT BILL Calcium 10.3 8.4 - 10.4 mg/dL [facility] ACCOUNT BILL Protein Total 7.5 6.4 - 8.3 gm/dL [facility] ACCOUNT BILL Albumin 4.7 3.5 - 5.2 gm/dL [facility] ACCOUNT BILL Bilirubin Total 0.7 0.2 - 1.2 mg/dL [facility] ACCOUNT BILL Alkaline Phosphatase 80 40 - 150 U/L [facility] ACCOUNT BILL AST 21 5 - 34 U/L [facility] ACCOUNT BILL ALT 24 0 - 61 U/L [facility] ACCOUNT BILL Blood BLOOD SPECIMEN / Unknown 06/28/2021 10:44 AM CDT 06/28/2021 Narrative Resulting Agency Comment Lab Testing performed at: [address] [id number] Grace Sarmiento MD LAB - CHEMISTRY ORDERABLES Lillie l Result Performing Organization Address [facility] de Phone Number [facility] ACCOUNT BILL [id number] [place] [address] * (ABNORMAL) LIPID PROFILE (06/28/2021 10:44 AM CDT) Cholesterol 223(H) <200 mg/dL [facility] ACCOUNT BILL Triglycerides 114 <150 mg/dL [facility] ACCOUNT BILL HDL Cholesterol 72 >40 mg/dL [facility] ACCOUNT BILL VLDL Calculated 23 <=30 mg/dL [facility] ACCOUNT BILL LDL Calculated 128 <130 mg/dL [facility] ACCOUNT BILL Blood BLOOD SPECIMEN / Unknown 06/28/2021 10:44 AM CDT 06/28/2021 Narrative Resulting Agency Comment Lab Testing performed at: [address] [id number] Grace Sarmiento MD LAB - CHEMISTRY ORDERABLES Lillie l Result Performing Organization Address [facility]/ZIP Co de Phone Number [facility] ACCOUNT BILL [address] [place] [address] from Last 3 Months or Most Recently Relevant to Health Maintenance Insurance [facility] Care Teams Legal Support Specialist Relationship Specialty Start Date End Date Pcp, Shannan Bridges - PCP - General 10/30/23 Anish Taveras MD Obstetrics and Gynecology 06/28/21 Maria Guadalupe Becerril MD Dermatology 06/28/21
--- OUTSIDE RECORDS SUMMARY | 2025-07-24 14:18 | XMS_ITS | Clinical Summary ---
Author Organization [facility] Address [address] [place] [address] Phone Care Team Providers Care Surgical Nurse Practitioner Name Role Phone Cece Irizarry MD Primary Care Provider [phone] Allergies Active Allergy Reactions Criticality Noted Date Comments Hydrocodone-Acetaminophen Hives High 12/10/2014 Sulfa (Sulfonamide Antibiotics) Itching Low 09/07 Sulfur Hives High 12/10/2014 Medications No known medications Active Problems Patient Care Coordination No te Formatting of this note migh t be different from the original. Primary Care: Cece Irizarry MD [place]: [place] [address] [place] [address] [place] [id number] Other: Problem Noted Date Diagnosed Date Diffuse cystic mastopathy 02/23/2016 Visual changes Depression Resolved Problems Problem Noted Date Diagnosed Date Resolved Date Breast mass, left 12/09/2014 01/27/2015 Social History Tobacco Use Types Packs/Day Years Used Date Smoking Tobacco: Every Day Cigarettes 1 32 Smokeless Tobacco: Never Tobacco Cessation:Counseling Given: No Alcohol Use Standard Drinks/Week Comments Yes 0 (1 standard drink = 0.6 oz pur e alcohol) daily Comments No Sex and Gender Information Value Date Recorded Sex Assigned at Not on file 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 Gender Identity Not on file Sexual Orientation Not on file Last Filed Vital Signs Vital Sign Reading Time Taken Comments Blood Pressure 125/73 07/11/2019 11:34 AM CDT Pulse 85 07/11/2019 11:34 AM CDT Temperature 36.4 C (97.6 F) 07/11/2019 11:34 AM CDT Respiratory Rate 16 07/11/2019 11:34 AM CDT Oxygen Saturation 97% 07/11/2019 11:34 AM CDT Inhaled Oxygen Concentration - - Weight 68 kg (150 lb) 07/11/2019 11:34 AM CDT Height 162.6 cm (5' 4) 07/11/2019 11:34 AM CDT Body Mass Index 25.75 07/11/2019 11:34 AM CDT Plan of Treatment Health Maintenance Due Date Last Done Comments HPV/Cotest (21-29) 1984 CERVICAL CANCER SCREENING 1993 HPV/Cotest (30-65) 1993 PAP SMEAR 1993 COLORECTAL SCREENING 2008 Colorectal Cancer Screening 2008 FIT-DNA Q 3 years 2008 FIT/FOBT Q 1 year 2008 Flex Sig/CT Colonography Q 5 years 2008 ZOSTER VACCINE (1 of 2) 2013 BREAST CANCER SCREENING 12/10/2022 12/11/19 22, 12/10/2021, 09/30/2020, Additional history exists INFLUENZA VACCINE (#1) 2025 DTAP/TDAP/TD VACCINES (2 - T d or Tdap) 06/15/2027 06/15/2017 RSV VACCINE (60+ or ) (1 - 1-dose 75+ series) 2038 Procedures Procedure Name Priority Date/Time Associated Diagnosis Comments MAMMO DIAGNOSTIC BILATERAL W OR WO CAD Routine 03/20/2016 3:06 PM CDT Diffuse cystic mastopathy, unspecified laterality from Last 3 Months or Most Recently Relevant to Health Maintenance Results * MAMMO DIGITAL DIAG BILAT (03/20/2016 3:06 PM CDT) Anatomical Region Laterality Modality Breast Bilateral Mammography 03/20/2016 3:06 PM CDT Impressions 03/21/2016 9:55 AM CDT IMPRESSION: No mammographic evidence of malignancy. RECOMMENDATIONS: Routine mammogram in one year. Narrative 03/21/2016 9:55 AM CDT EXAM: BILATERAL DIAGNOSTIC FULL FIELD DIGITAL MAMMOGRAPHY WITH CAD DATE: 03/20/2016 3:06 PM HISTORY: Diffuse cystic mastopathy TECHNIQUE: Mediolateral oblique and craniocaudal views of both breasts were performed using full field digital mammography. Computer aided diagnosis was performed. COMPARISON: December 2014September 2013 and September 2010 BREAST COMPOSITION: Scattered fibroglandular densities. FINDINGS: No suspicious finding are seen on the current mammogram. Since the prior study, there has been no significant change. CAD detected no significant abnormality. OVERALL ASSESSMENT: BI-RADS category 1 - Negative Procedure Note Janki Connelly MD - 03/21/2016 EXAM: BILATERAL DIAGNOSTIC FULL FIELD DIGITAL MAMMOGRAPHY WITH CAD DATE: 03/20/2016 3:06 PM HISTORY: Diffuse cystic mastopathy TECHNIQUE: Mediolateral oblique and craniocaudal views of both breasts were performed using full field digital mammography. Computer aided diagnosis was performed. COMPARISON: December 2014, September 2013 and September 2010 BREAST COMPOSITION: Scattered fibroglandular densities. FINDINGS: No suspicious finding are seen on the current mammogram. Since the prior study, there has been no significant change. CAD detected no significant abnormality. OVERALL ASSESSMENT: BI-RADS category 1 - Negative IMPRESSION IMPRESSION: No mammographic evidence of malignancy. RECOMMENDATIONS: Routine mammogram in one year. Laura Santiago MD MAMMO ORDERABLES Final Resul t from Last 3 Months or Most Recently Relevant to Health Maintenance Insurance [facility] [employer] PPO [id number] Care Teams Surgical Nurse Practitioner Relationship Specialty Start Date End Date Cece Irizarry MD PCP - General Internal Medicine 03/20/16
== END 2025-07-24 14:17 | disposition home or self-care (01) ==
PROVIDERS: PCP Family Medicine; Visit Provider Family Medicine
DX: Z12.31 Encounter for screening mammogram for malignant neoplasm of breast (principal)
CPT/HCPCS: 77063; 77067

== ENCOUNTER 2025-08-31 09:18 | Outpatient (CLI) | payer OTHER, SELFPAY ==
--- NOTE | ~2025-08-31 | CT_ITS ---
EXAMINATION:CT lung screening DATE: 08/31/2025 09:30 INDICATION: Smoking history. TECHNIQUE: Computed tomography (CT) of the chest was performed without intravenous contrast. Automated exposure control and iterative reconstruction technique were employed. The dose-length product (DLP) was 86.20 mGy-cm. COMPARISON: None. FINDINGS: Moderate centrilobular pattern of emphysema. No solid pulmonary mass or nodule. No evidence of lymphadenopathy or effusion. IMPRESSION: 1. Moderate emphysematous changes of lungs without focal lesions. Continue annual low-dose CT screening. Lung RADS category 2 Reviewed, dictated and finalized at location T. 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 Moderate emphysematous changes of lungs without focal lesions. Continue sindi al low-dose CT screening. Lung RADS category 2
== END 2025-08-31 09:19 | disposition home or self-care (01) ==
LOC: MICIMG 09:19
PROVIDERS: PCP Student in an Organized Health Care Education/Training Program; Visit Provider Student in an Organized Health Care Education/Training Program
DX: Z12.2 Encounter for screening for malignant neoplasm of respiratory organs (principal); J43.9 Emphysema, unspecified; Z87.891 Personal history of nicotine dependence
CPT/HCPCS: 71271